=== PATIENT | male | born 1985 | race Caucasian/White ===

== ENCOUNTER 2017-10-24 12:14 | Emergency (ER) | payer MEDICAID ==
[~2017-10-24] VITALS: Ht 172.7 cm; Wt 75.0 kg
[2017-10-24] MEDS ORDERED: METF500T4 PO (12:19)
[2017-10-24] MEDS ORDERED: KETOROLAC 60MG/2ML VIAL IM STA (14:41)
[2017-10-24] MEDS ORDERED: KETOROLAC 30MG/ML VIAL IV STA (14:44)
[2017-10-24] MEDS ORDERED: INSULIN REGULAR (HUMULIN R) 300UNITS/3ML IV ONE (16:00)
[2017-10-24] MEDS ORDERED: SODIUM CHLORIDE 0.9% 1,000 ML IV ONE (17:08)
[2017-10-24 17:52] LABS: CHLORIDE 100 mEq/L (98-107)
[2017-10-24] MEDS ORDERED: IOHEXOL-300 100 ML BOTTLE ONE (18:50)
[2017-10-24] MEDS ORDERED: HYDROCODONE/APAP 7.5/325MG 1 TAB TABLET PO ONE (19:00)
[2017-10-24 20:01] LABS: CLARITY URINE CLEAR (CLEAR); COLOR URINE YELLOW (YELLOW); KETONES URINE 2+ (NEGATIVE); LEUKOCYTE ESTERASE URINE NEGATIVE (NEGATIVE); NITRITE URINE NEGATIVE (NEGATIVE); OCCULT BLOOD URINE NEGATIVE (NEGATIVE); PROTEIN URINE NEGATIVE (NEGATIVE); SPECIFIC GRAVITY URINE 1.042 (1.005-1.030); UROBILINOGEN URINE 0.2 E.U./dL (0.2-1.0)
[2017-10-24 20:45] VITALS: BP 115/77
== END 2017-10-24 21:40 | disposition home or self-care (01) ==
LOC: ER 12:38
DX: M54.5 Low back pain (principal); G89.29 Other chronic pain; M25.551 Pain in right hip; M54.31 Sciatica, right side; E11.9 Type 2 diabetes mellitus without complications; V43.62XA Car passenger injured in collision with other type car in traffic accident, initial encounter; Y93.89 Activity, other specified; Y92.488 Other paved roadways as the place of occurrence of the external cause
CPT/HCPCS: 36415; 74177; 80053; 81003; 82962; 96361; 96374; 96375; 99285; J1815; J1885; J7030; Q9967; Z7610